=== PATIENT | male | born 2000 | race Two or more races ===

== ENCOUNTER 2022-07-06 00:23 | Emergency (ER) | payer MEDICAID, OTHER ==
[~2022-07-06] VITALS: Ht 177.8 cm; Wt 77.2 kg
[2022-07-06 01:42] VITALS: BP 135/81
[2022-07-06] MEDS ORDERED: PENI500T2 PO (01:42)
[2022-07-06] MEDS ORDERED: PRED15SO26 PO (01:42)
[2022-07-06] MEDS ORDERED: IBUP800T26 PO (01:42)
[2022-07-06] MEDS ORDERED: DexAMETHasone SOD PHOS 10MG/1ML VIAL INJ PO ONE (01:45)
== END 2022-07-06 01:55 | disposition home or self-care (01) ==
LOC: ER 00:23
DX: J02.9 Acute pharyngitis, unspecified (principal)
CPT/HCPCS: 99283; J1100